=== PATIENT | male | born 1955 ===

== ENCOUNTER 2022-10-24 09:11 | Outpatient (REF) | payer OTHER, SELFPAY ==
[2022-10-29 17:09] LABS: PSA, Ultra Sensitive 0.12 ng/mL
== END 2022-10-24 09:12 | disposition home or self-care (01) ==
LOC: HO.WFDLDS 09:11
PROVIDERS: Visit Provider Nurse Practitioner Family
DX: Z00.00 Encounter for general adult medical examination without abnormal findings (principal); Z12.5 Encounter for screening for malignant neoplasm of prostate
CPT/HCPCS: 36415; 80053; 80061; 84153; 84443; 85027

== ENCOUNTER 2022-10-28 08:33 | Outpatient (AMB) | payer OTHER, SELFPAY ==
[2022-10-28 08:44] VITALS: BP 138/82; PULSE 80; RESP 13; TEMP 36.6; O2SAT 94; BMI 26.5
--- NOTE | 2022-10-28 08:44 | A.OFFPC_ITS ---
Vital Signs 10/28/22 08:44 10/28/22 09:31 Height 6 ft 3 in Weight 212 lb BMI 26.5 BP 138/82 138/80 Blood Pressure Location Rt brachial Rt brachial Position Sitting Sitting Respiration 13 Pulse 80 Pulse Source Pulse Oximeter Temp 97.9 F Temp Source Temporal Artery Scan Pulse Oximetry (%) 94 Oxygen Delivery Method Room Air Intake Visit Reasons: CPE, labs review Ict Support Engineer Required: No Accompanied by: Daughter Allergies poison vu extract Allergy (Severe, Verified 10/28/22 08:54) Blister Medication List - Last Reconciled 10/28/22 by James Parada CNP No Known Home Meds Tobacco use date assessed: 09/30/22 Fall risk assessment: No Falls in past year Last assessed Fall Risk: 10/28/22 Dental Screening Dental Screen Date: 10/28/22 Did you have a dental visit in the last 12 months?: No Did you have a dental problem in the last 6 months where you did not have access to dental care?: No HPI HPI Comments History of Present Illness Details 67-year-old male, accompanied by his daughter, presents for a complete physical exam He established care last month He has history of anxiety and depression but declined therapy or medication treatment He also has a documented history of diabetes and hypertension; however, he notes he does not recall these medical history He is a poor historian He reports increasing blurry vision of both eyes. He has history of cataract of both eyes; has an appointment scheduled with opthalmology His daughter reports FH of diabetes on the father's side of the patient's family [facility] Medical History (Updated 10/28/22 @ 13:13 by James Parada CNP) Acid reflux Diabetes High blood pressure Knee pain Psoriasis Surgical History No pertinent past surgical history Family History (Updated 10/28/22 @ 08:52 by Su Go MA) Mother Cardiovascular disease Father Cardiovascular disease Alcoholism Sister Rectal cancer Social History Housing: House Patient Tobacco Use Status: Current everyday Tobacco user Tobacco use type: Cigarette Cigarette Packs Per Day: 0.5 Cigarettes Per Day: 10 Years Smoked: 50 e-Cigarette/Vaping Use: Never Used service: No Current occupational status: retired Cognitive needs: No Hearing needs: Yes Vision needs: Yes Questionnaire Thrive Questionnaire Date Thrive assessed: 09/30/22 MARYANA-7 AMB Questionnaire MARYANA-7 Date MARYANA - 7 assessed: 09/30/22 Source: Developed by Drs. Jamal Abreu, Omayra Tolentino, Gus Emerson and colleagues, with an educational toy from [employer] Review of Systems Const Details: Denies chills, Denies fatigue, Denies fever(s), Denies headache(s) and Denies weakness HEENT Denies change in vision, Denies dizziness, Denies headache(s), Denies hearing loss, Denies nasal congestion, Denies sinus pain, Denies sinus pressure and Denies sore throat Card Denies chest pain, Denies lightheadedness, Denies dyspnea and Denies other (palpitations) Resp Denies cough, Denies dyspnea and Denies wheezing GI Denies abdominal pain, Denies melena, Denies hematochezia, Denies change in bowel habits, Denies dyspepsia and Denies nausea Denies hematuria and Denies dysuria Musc Denies abnormal gait, Denies myalgias, Denies arthralgias, Denies numbness and Denies tingling Skin/Breast Denies rash, Denies unusual bruising and Denies wounds Neuro Denies abnormal gait, Denies dizziness, Denies headache(s), Denies memory loss, Denies numbness, Denies Sensory deficit (Neuro), Denies tingling and Denies weakness Psych Denies anxiety, Denies depression and Denies memory loss Endo Denies cold intolerance, Denies fatigue, Denies heat intolerance, Denies polydipsia and Denies polyuria Juliocesar/Lymph Denies easy bleeding and Denies easy bruising Aller/Immun Denies wheezing Physical exam (Primary Care) Vital Signs: Last Vital Signs Temp 97.9 F 10/28/22 08:44 Pulse 80 10/28/22 08:44 Resp 13 10/28/22 08:44 BP 138/80 10/28/22 09:31 Pulse Ox 94 10/28/22 08:44 Oxygen Delivery Method Room Air 10/28/22 08:44 BMI result Body Mass Index 26.5 Tobacco/Smoking Status: Tobacco use Status Tobacco use date assessed 09/30/22 10/28/22 08:52 Patient Tobacco Use Status Current everyday Tobacco 10/28/22 08:52 Tobacco use type Cigarette 10/28/22 08:52 e-Cigarette/Vaping Use Never Used 10/28/22 08:52 Thrive Assessment: Date of Thrive Assessment Date Thrive assessed 09/30/22 10/28/22 08:52 Const Other: General: no acute distress, well developed, alert and awake Nutritional Appearance: well nourished Orientation/consciousness: patient oriented x3 HENMT Head: Yes normocephalic and Yes atraumatic Ears: BIG SANDY bilaterally and TM's normal bilaterally General nose exam: Normal external nose present and Normal nares present Mouth: Normal oral and palatal mucosa present and moist mucous membranes Teeth and gingiva: dentition normal Throat: Yes oropharynx normal Eyes Pupils: Equal, round and reactive pupils present and Pupil accommodation reflex normal EOM: EOMs intact bilaterally Neck Neck: Yes normal visual inspection, Yes no lymphadenopathy and Yes trachea midline Thyroid: Thyroid normal Carotids: no bruits Lymphatic: no lymphadenopathy noted Chest Chest palpation & inspection: normal inspection of the chest Resp Effort & Inspection: normal respiratory effort Auscultation: clear to auscultation bilaterally Cardio Rate: regular rate Rhythm: regular rhythm Heart sounds: S1 normal heart sound present, S2 normal heart sound present, no gallops, no murmurs and no rubs Bruits: no abdominal aortic bruits and no carotid bruits GI Palpation (GI): No Abdominal aortic bruit present, Soft to palpation, nontender, No hepatosplenomegaly present and No Rebound tenderness present Auscultation: normal bowel sounds General: Yes no CVA tenderness Back/Spine/Pelvis Back: no CVA tenderness Cervical Spine: cervical ROM normal and No Cervical spine tenderness Thoracic/Lumbar Spine: thoraco-lumbar ROM normal, No pain with thoraco-lumbar ROM, No thoracic spinal tenderness and No lumbar spinal tenderness Skin General: warm and dry. Normal skin color. Normal skin turgor Lesions: no lesions Rashes: no rashes Trauma: no lacerations or abrasions Wounds: no wounds Nails: normal Neuro General: patient oriented x3, gait normal and CN's II-XI intact bilaterally Cranial nerves: Yes Equal, round and reactive pupils present Cognition (Neuro): normal cognition Gait exam (Neuro): Normal gait present Motor exam (neuro): 5/5 motor strength present throughout Sensory Exam: No Sensory deficit (Neuro) Deep tendon reflexes (DTR's): Right patellar reflex intensity grade: 2+ and Left patellar reflex intensity grade: 2+ Extrem General: Yes normal to inspection, No edema and No calf tenderness Psych Appearance: grossly normal Affect: normal affect Attitude: cooperative Thought process: Normal thought process present Results AMB Hemoglobin A1c AMB Hemoglobin A1c 7.1 % Last Edit by Karen Sweeney on 10/28/22 09:3 6 Results Reviewed Results Reviewed: Laboratory Last Values Hgb A1c (Clinic) 7.1 % (4.0-6.0) H 10/28/22 09:32 Assessment and Plan Assessment & Plan (1) Normal physical examination, routine: Code(s): Z00.00 - Encounter for general adult medical examination without abnormal findings Plan: No significant physical restrictions or limitations noted Encouraged to get fasting blood work done before next visit Follow-up in 6 weeks or return sooner with concerns or symptoms Verbalized understanding and agreed with the plan (2) Hard of hearing: Code(s): H91.90 - Unspecified hearing loss, unspecified ear Plan: History of impaired hearing bilaterally Referred to audiology (3) High blood pressure: Code(s): I10 - Essential (primary) hypertension Plan: Fasting blood pressure is elevated, 138/80, above goal of less than 130/80 Low-sodium diet and routine exercise encouraged Follow-up in 6 weeks Return sooner with symptoms or concerns Verbalized understanding and agreed with the plan. (4) Elevated LDL cholesterol level: Code(s): E78.00 - Pure hypercholesterolemia, unspecified Plan: Recent lab results reviewed with patient HLD is 119, above goal of less than 100 10 year risk of ASCVD is 42.4% Rosuvastatin ordered. Take as prescribed Limit foods high in saturated fat and avoid foods high in trans fat Routine exercise encouraged Lipid panel ordered. Advised to fast for at least 10-12 hours and get blood work done before next visit Follow-up in 6 weeks Return sooner with symptoms or concerns Verbalized understanding and agreed with treatment plan. (5) Type 2 diabetes mellitus: Code(s): E11.9 - Type 2 diabetes mellitus without complications Plan: Recent fasting glucose was 170 A1c he is 7.1% today, slightly above goal of less than 7.0% Metformin ordered. Take as prescribed ADA diet and routine exercise encouraged Follow-up in 6 weeks Return sooner with symptoms or concerns Verbalized understanding and agreed with treatment plan. (6) Cataract: Code(s): H26.9 - Unspecified cataract Plan: He reports increasing blurry vision of both eyes. He has history of cataract of both eyes; has an appointment scheduled with opthalmology Follow-up with Ophthalmology as planned Return with worsening or new symptoms Verbalized understanding and agreed with treatment plan. Orders: Orders Lipid Panel Today E78.00 - Pure hypercholesterolemia, unspecified Referrals Audiology Referral H91.90 - Unspecified hearing loss, unspecified ear Medications: New metformin 500 mg PO DAILY 30 days 30 tabs 3RF rosuvastatin 20 mg PO DAILY 30 days 30 tabs 3RF Coding Level of Care Code Est Pt Level 4 (41583) Diagnoses Normal physical examination, routine Z00.00 Hard of hearing H91.90 High blood pressure I10 Elevated LDL cholesterol level E78.00 Type 2 diabetes mellitus E11.9 Cataract H26.9 Time Spent (min) 35
[2022-10-28 09:31] VITALS: BP 138/80
== END 2022-10-28 09:55 | disposition home or self-care (01) ==
PROVIDERS: PCP Nurse Practitioner Family; Visit Provider Nurse Practitioner Family
DX: Z00.00 Encounter for general adult medical examination without abnormal findings (principal); I10 Essential (primary) hypertension; E11.36 Type 2 diabetes mellitus with diabetic cataract; H91.93 Unspecified hearing loss, bilateral; E78.00 Pure hypercholesterolemia, unspecified; H26.9 Unspecified cataract
CPT/HCPCS: 99397

== ENCOUNTER 2022-12-29 10:08 | Outpatient (REF) | payer OTHER, SELFPAY ==
[2022-12-29 12:27] LABS: Cholesterol 94 mg/dL (<200); HDL Cholesterol 28 mg/dL (>40); LDL Cholesterol Calculated 53 mg/dL (<100); Triglycerides 65 mg/dL (<150)
== END 2022-12-29 10:09 | disposition home or self-care (01) ==
LOC: HO.WFDLDS 10:08
PROVIDERS: Visit Provider Nurse Practitioner Family
DX: E78.00 Pure hypercholesterolemia, unspecified (principal)
CPT/HCPCS: 36415; 80061

== ENCOUNTER 2023-01-01 13:18 | Outpatient (AMB) | payer OTHER, SELFPAY ==
[2023-01-01 13:23] VITALS: BP 136/84; PULSE 87; RESP 12; TEMP 36.5; O2SAT 98; BMI 25.5
--- NOTE | 2023-01-01 13:23 | A.OFFPC_ITS ---
Vital Signs 01/01/23 13:23 Height 6 ft 3 in Weight 204 lb 4 oz BMI 25.5 BP 136/84 Blood Pressure Location Lt brachial Position Sitting Respiration 12 Pulse 87 Pulse Source Pulse Oximeter Temp 97.7 F Temp Source Temporal Artery Scan Pulse Oximetry (%) 98 Oxygen Delivery Method Room Air Intake Visit Reasons: 6 wks for HTN, DM , high LDL Intake Note: Patient states he has a growth on his skin under his right arm he would like you to look at. Compensation Expert Required: No Accompanied by: Daughter Allergies poison vu extract Allergy (Severe, Verified 01/01/23 13:52) Blister Medication List - Last Reconciled 01/01/23 by James Parada, SATHYA latanoprost 0.005% 1 drp ophthalmic (eye) DAILY metformin 500 mg PO DAILY 30 days rosuvastatin 20 mg PO DAILY 30 days Tobacco use date assessed: 09/30/22 Fall risk assessment: No Falls in past year Last assessed Fall Risk: 01/01/23 Dental Screening Dental Screen Date: 01/01/23 Did you have a dental visit in the last 12 months?: No Did you have a dental problem in the last 6 months where you did not have access to dental care?: No Was dental information given to patient?: Patient has dentist HPI HPI Comments History of Present Illness Details 67-year-old male, accompanied by his joey mike presents for hypertension, diabetes, and elevated LDL follow-up. He notes he has been taking his medications as prescribed with no adverse reactions. He states he recently noticed a painless lesion to his lateral right rib cage. No bleeding or drainage. He notes he was unable to see audiology because his health plan denied coverage. COUNT [facility]CLUD[facility] Medical History Psoriasis Knee pain Acid reflux Diabetes High blood pressure Surgical History No pertinent past surgical history Family History Mother Cardiovascular disease Father Cardiovascular disease Alcoholism Sister Rectal cancer Social History Housing: House Patient Tobacco Use Status: Current everyday Tobacco user Tobacco use type: Cigarette Cigarette Packs Per Day: 0.5 Cigarettes Per Day: 10 Years Smoked: 50 e-Cigarette/Vaping Use: Never Used service: No Current occupational status: retired Cognitive needs: No Hearing needs: Yes Vision needs: Yes Questionnaire Thrive Questionnaire Date Thrive assessed: 09/30/22 MARYANA-7 AMB Questionnaire MARYANA-7 Date MARYANA - 7 assessed: 09/30/22 Source: Developed by Drs. Jamal Abreu, Omayra Tolentino, Gus Emerson and colleagues, with an educational toy from [employer]. Review of Systems Const Details: Const Denies chills, Denies fatigue, Denies fever(s), Denies headache(s) and Denies weakness ENT Denies dizziness and Denies headache(s) Card Denies chest pain, Denies lightheadedness, Denies dyspnea and Denies other (Palpitations) Resp Denies cough, Denies dyspnea, Denies wheezing and Denies other ( shortness of breath) GI Denies abdominal pain, Denies melena, Denies hematochezia, Denies change in bowel habits, Denies dyspepsia and Denies nausea Denies hematuria and Denies dysuria Musc Denies abnormal gait, Denies myalgias, Denies arthralgias, Denies numbness and Denies tingling Skin/Breast Reports as per HPI Neuro Denies abnormal gait, Denies dizziness, Denies headache(s), Denies memory loss, Denies numbness, Denies Sensory deficit (Neuro), Denies tingling and Denies weakness Psych Denies anxiety, Denies depression, Denies memory loss Endo Denies cold intolerance, Denies fatigue, Denies heat intolerance, Denies polydipsia and Denies polyuria Aller/Immun Denies wheezing Physical exam (Primary Care) Vital Signs: Last Vital Signs Temp 97.7 F 01/01/23 13:23 Pulse 87 01/01/23 13:23 Resp 12 01/01/23 13:23 BP 136/84 01/01/23 13:23 Pulse Ox 98 01/01/23 13:23 Oxygen Delivery Method Room Air 01/01/23 13:23 BMI result Body Mass Index 25.5 Tobacco/Smoking Status: Tobacco use Status Tobacco use date assessed 09/30/22 01/01/23 13:33 Patient Tobacco Use Status Current everyday Tobacco 01/01/23 13:33 Tobacco use type Cigarette 01/01/23 13:33 e-Cigarette/Vaping Use Never Used 01/01/23 13:33 Thrive Assessment: Date of Thrive Assessment Date Thrive assessed 09/30/22 01/01/23 13:33 Const Other: General: no acute distress and well developed Nutritional Appearance: well nourished Orientation/consciousness: patient oriented x3 HENMT Head: Yes normocephalic and Yes atraumatic Eyes General: appearance normal, both eyes and all related structures Pupils: Equal, round and reactive pupils present EOM: EOMs intact bilaterally Resp Effort & Inspection: normal respiratory effort Auscultation: clear to auscultation bilaterally Cardio Rate: regular rate Rhythm: regular rhythm Heart sounds: S1 normal heart sound present, S2 normal heart sound present, no gallops, no murmurs and no rubs GI Palpation (GI): No Abdominal aortic bruit present, Soft to palpation, nontender, No hepatosplenomegaly present and No Rebound tenderness present Auscultation: normal bowel sounds General: Yes no CVA tenderness Back/Spine/Pelvis Back: no CVA tenderness Cervical Spine: cervical ROM normal and No Cervical spine tenderness Thoracic/Lumbar Spine: thoraco-lumbar ROM normal, No pain with thoraco-lumbar ROM, No thoracic spinal tenderness and No lumbar spinal tenderness Extrem General: Yes normal to inspection, No edema and No calf tenderness Skin General: warm and dry. Normal skin color. Normal skin turgor Lesions: Raised, slightly bigger than pea-sized, melanocytic lesion with irregular border noted to the lateral right rib cage Rashes: no rashes Trauma: no lacerations or abrasions Wounds: no wounds Nails: normal Neuro General: patient oriented x3, gait normal and no focal neuro deficit Cranial nerves: Yes Equal, round and reactive pupils present Cognition (Neuro): normal cognition Gait exam (Neuro): Normal gait present Sensory Exam: No Sensory deficit (Neuro) Psych Appearance: grossly normal Affect: normal affect Attitude: cooperative Thought process: Normal thought process present Assessment and Plan Assessment & Plan (1) High blood pressure: Code(s): I10 - Essential (primary) hypertension Qualifiers: Hypertension type: primary hypertension Qualified Code(s): I10 - Essential (primary) hypertension Plan: Blood pressure is 136/84, slightly above goal of less than 130/80 Low-sodium diet encouraged Follow-up in 6 weeks or return sooner with symptoms or concerns Verbalized understanding and agreed with treatment plan. (2) Elevated LDL cholesterol level: Code(s): E78.00 - Pure hypercholesterolemia, unspecified Plan: Recent triglycerides, total cholesterol, and LDL level is normal Will add Freeman 3 fatty acids to increase HDL level Continue to take atorvastatin as prescribed Advised to limit foods high in saturated fat and avoid foods high trans fat Routine exercise encouraged Repeat lipid panel ordered. Advised to fast for at least 10-12 hours and get blood work done before next visit Follow-up in 6 weeks Verbalized understanding and agreed with treatment plan. (3) Type 2 diabetes mellitus: Code(s): E11.9 - Type 2 diabetes mellitus without complications Plan: A1c was 7.1% in October He is on metformin 500 mg daily which he notes he has been taking as prescribed and tolerating without adverse reactions Continue with current treatment regimen ADA diet and routine exercise encouraged Follow-up in 6 weeks or return sooner with symptoms or concerns Verbalized understanding and agreed with treatment plan. (4) Neoplasm of uncertain behavior: Code(s): D48.9 - Neoplasm of uncertain behavior, unspecified Plan: He states he recently noticed a painless lesion to his lateral right rib cage. No bleeding or drainage Raised, slightly bigger than pea-sized, melanocytic lesion with irregular border noted to the lateral right rib cage Referred to dermatology Advised to ask his health plan for Dermatology and audiology covered for appropriate referrals Return with new or worsening signs and symptoms Verbalized understanding and agreed with treatment plan. Orders: Orders Lipid Panel 6 Weeks E11.9 - Type 2 diabetes mellitus without complications Referrals Dermatology Referral D48.9 - Neoplasm of uncertain behavior, unspecified Medications: New omega-3 fatty acids 500 mg PO DAILY 30 days 30 caps 3RF Coding Level of Care Code Est Pt Level 3 (49066) Diagnoses Primary hypertension I10 Hypertension type: primary hypertension Elevated LDL cholesterol level E78.00 Type 2 diabetes mellitus E11.9 Neoplasm of uncertain behavior D48.9
== END 2023-01-01 14:14 | disposition home or self-care (01) ==
PROVIDERS: PCP Nurse Practitioner Family; Visit Provider Nurse Practitioner Family
DX: I10 Essential (primary) hypertension (principal); E78.00 Pure hypercholesterolemia, unspecified; E11.9 Type 2 diabetes mellitus without complications; D48.9 Neoplasm of uncertain behavior, unspecified
CPT/HCPCS: 99213